=== PATIENT | female | born 1950 | race Caucasian/White ===

== ENCOUNTER 2021-07-15 12:57 | Outpatient (CLI) | payer MEDICARE | END 2021-07-15 12:58 | disposition short-term general hospital (02) | LOC: EMS 12:57 | DX: R29.810 Facial weakness (principal); H57.9 Unspecified disorder of eye and adnexa | CPT/HCPCS: A0425; A0429 ==

== ENCOUNTER 2024-01-02 09:21 | Outpatient (CLI) | payer MEDICARE ==
--- NOTE | 2024-01-02 20:35 | CT Report ---
PROCEDURE: Lung Cancer Screen INDICATIONS: SCREENING FOR LUNG CA, POST MENOPAUSAL TECHNIQUE: A CT scan of the chest was performed. Intravenous contrast media was not administered. Images were re corded and evaluated at appropriate window settings. Reformats: axial MIP of the chest, coronal and s agittal. For radiation dose reduction, the following was used: automated exposure control, adjustment of mA and/or kV according to patient size. COMPARISON: None. FINDINGS: Image quality: Diagnostic. Lungs and pleura: No pleural effusions. No pneumothorax. No suspicious pulmonary nodules which requi re follow up. Mediastinum: Heart size is normal. No pericardial effusion. No large vessel abnormality. No mediastin al adenopathy by size criteria. Chest wall and lower neck: Thyroid is unremarkable. No axillary or supraclavicular adenopathy by size . Surgical clips in the left axilla. Bilateral breast implants are present. Bones: No aggressive osseous abnormality. No acute compression fractures. Mild multilevel spondylosis of the imaged spine. Upper Abdomen: Unremarkable. IMPRESSION: Lung RAD: 1 - Negative. Recommendation: Continue annual screening in 12 Months with LDCT Non-Lung Significant Findings: None. Reviewed by: Thiago Means MD on 01/02/2024 7:34 PM AKCASEY Approved by: Thiago Means MD on 01/02/2024 7:34 PM AKDT Station ID: [id number]
== END 2024-01-02 09:22 | disposition home or self-care (01) ==
LOC: DI 09:21
PROVIDERS: ATTEND Nurse Practitioner Acute Care
DX: Z12.2 Encounter for screening for malignant neoplasm of respiratory organs (principal)